=== PATIENT | female | born 1985 | race American Indian/Alaskan Native ===

== ENCOUNTER 2021-01-13 16:59 | Emergency (ER) | payer OTHER ==
[2021-01-13 17:27] VITALS: BP 165/94
[2021-01-13] MEDS ORDERED: predniSONE 20 MG TAB PO ONE ×2 (19:35→22:00)
[2021-01-13] MEDS ORDERED: ONDANSETRON 4 MG ODT TAB PO ONE ×2 (19:35→22:00)
[2021-01-13] MEDS ORDERED: oxyCODONE /ACETAMINOPHEN 5-325MG TAB PO ONE ×2 (19:35→22:00)
[2021-01-13 19:48] LABS: Basophils % (Auto) 0.6 % (0.0-1.8); Eosinophils % (Auto) 0.3 % (0.0-4.3); Hematocrit 37.3 % (30.3-42.9); Hemoglobin 13.4 gm/dl (10.1-14.3); Lymphocytes # (Auto) 2.2 K/mm3 (1.2-5.4); Lymphocytes % (Auto) 29.9 % (13.4-35.0); Mean Corpuscular HGB Conc 36 % (30-34); Mean Corpuscular Volume 93 fl (79-97); Monocytes # (Auto) 0.3 K/mm3 (0.0-0.8); Monocytes % (Auto) 4.6 % (0.0-7.3); Platelet Count 287 K/mm3 (140-440); Red Cell Distribution Width 13.2 % (13.2-15.2)
[2021-01-13 20:09] LABS: Alanine Aminotransferase 16 units/L (7-56); Albumin 4.4 g/dL (3.9-5); Blood Urea Nitrogen 10 mg/dL (7-17); Calcium 9.1 mg/dL (8.4-10.2); Hemolysis Index 7
[2021-01-13 20:17] LABS: BUN/Creatinine Ratio 14
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
--- NOTE | 2021-01-13 21:28 | Cat Scan Report ---
CT LUMBAR SPINE WITHOUT CONTRAST HISTORY: Severe low back pain COMPARISON: None TECHNIQUE: CT images of the lumbar spine were obtained without contrast. Sagittal and coronal reform ats were post-processed.All CT scans at this location are performed using CT dose reduction for ALARA by means of automated exposure control. CONTRAST: None. FINDINGS: Alignment: Normal. No traumatic subluxation. Vertebrae:No significant abnormality. No fracture. Disc Spaces: No significant abnormality allowing for lack of intrathecal contrast. Facet Joints:No significant abnormality. Additional Findings: None IMPRESSION: 1. No significant abnormality. Signer Name: Sandhya Davenport MD Signed: 01/13/2021 9:23 PM Workstation Name: [id number]
[2021-01-13 22:19] LABS: Bilirubin,Urine NEG (Negative); Blood,Urine MOD (Negative); Calcium Oxalate Crystals,Urine 2+; Color,Urine Yellow (Yellow); Mucus,Urine 1+ /HPF; Protein,Urine <15 mg/dL mg/dL (Negative); Urobilinogen,Urine < 2.0 mg/dL (<2.0)
--- NOTE | 2021-01-17 09:41 | Electrocardiograph Report ---
[facility] Test Date: 2021-01-13 Test Time: 17:16:33 Pat Name: INESSA SILVESTRE Department: Room: Gender: F Scarrer: LENORE : 1985 Requested By: JAILENE LOPEZ Order Number: [id number] Reading MD: Chris Ledesma Measurements Intervals [place] Rate: 96 P: 37 IA: 144 QRS: 15 QRSD: 87 T: 45 QT: 364 QTc: 459 Interpretive Statements Sinus rhythm Left ventricular hypertrophy No previous ECG available for comparison Electronically Signed On 01-17-2021 9:40:59 EDT by Chris Ledesma
== END 2021-01-13 23:00 | disposition home or self-care (01) ==
LOC: EDSEX → ED 16:59
DX: S39.012A Strain of muscle, fascia and tendon of lower back, initial encounter (principal); G89.29 Other chronic pain; M54.42 Lumbago with sciatica, left side; Z88.6 Allergy status to analgesic agent; Z79.899 Other long term (current) drug therapy; W18.39XA Other fall on same level, initial encounter; Y93.89 Activity, other specified; Y92.89 Other specified places as the place of occurrence of the external cause; Y99.8 Other external cause status
CPT/HCPCS: 36415; 72131; 80053; 81001; 84703; 85025; 93005; 99284; J7512; Q0162